=== PATIENT | male | born 1940 | race Caucasian/White ===

== ENCOUNTER 2022-11-15 09:28 | Day surgery (SDC) | payer OTHER ==
--- NOTE | 2022-11-15 08:48 | HP ---
DATE OF SURGERY: 11/15/2022 HISTORY OF PRESENT ILLNESS: The patient is an 82-year-old had colonoscopy several years ago and is now in need of follow up screening. No bloody stools. No change in bowel habits. No new abdominal pain. Family history negative for colon cancer. PAST MEDICAL HISTORY: Knee problems in the past. Hypertension. Reflux. Skin cancer. Back pain. History of some polyps. Hyperlipidemia. Neuropathy. Osteoarthritis. Sleep apnea. Carotid artery disease in the past. Rhinitis. PAST SURGICAL HISTORY: Joint replacement. Back surgery. Total left knee surgery. Skin cancer right anglican. Left thyroid surgery in the past. MEDICATIONS: Terbinafine, amlodipine, dexamethasone, liquid tears, nitroglycerin, isosorbide mononitrate, zolpidem, Desonide cream, fluticasone, multivitamins, acetaminophen, cetirizine, omeprazole, docusate sodium, aspirin, lovastatin, hydrochlorothiazide, Atenolol, lisinopril. ALLERGIES: NKDA. IV CONTRAST. FAMILY HISTORY: Negative in regards to this problem. SOCIAL HISTORY: Former smoker. No alcohol abuse. REVIEW OF SYSTEMS: Fourteen systems reviewed. No chest pain or palpitations. Other systems negative or noncontributory as above and per preadmission questionnaire. PHYSICAL EXAMINATION: Height 5' 9". BMI 28. GENERAL: No acute distress. HEENT: Sclerae nonicteric. EOMI. Oral mucous membranes moist. NECK: No JVD. CHEST: Equal excursion, nonlabored breathing. CVS: Regular rate and rhythm. ABDOMEN: Soft. No peritoneal signs. EXTREMITIES: No significant edema. NEURO: Alert, oriented, moving extremities symmetrically. RECTAL: Deferred timed to endoscopy exam. PSYCH: Appropriate mood and affect. SKIN: Dry. IMPRESSION: Need for follow up screening colonoscopy. I feel the patient is a candidate. Risks and benefits explained in detail including bleeding and infection, risk of bowel injury or perforation, risk of missed or nondiagnosis or incomplete exam possibly requiring barium enema, other studies or procedures, general risk of anesthesia or sedation, risk of bowel prep but not limited to. Consent obtained. Will proceed with follow up screening colonoscopy as an outpatient.
[2022-11-15] MEDS ORDERED: Lactated Ringers 1,000 ML IV SCH (09:30)
[2022-11-15] MEDS ORDERED: DIPRIVAN 200 MG/20 ML IV ONE (10:52)
[2022-11-15 12:25] VITALS: O2SAT 93
[2022-11-15 12:34] VITALS: BP 151/81; PULSE 56
--- NOTE | 2022-11-16 12:54 | OP ---
SURGERY DATE/TIME: 11/15/2022 1113 PREOPERATIVE DIAGNOSIS: Need for follow up screening colonoscopy. POSTOPERATIVE DIAGNOSES: 1) Small polyps. 2) Diverticulosis left colon. 3) Good prep. 4) ASA Class III. PROCEDURES: 1) Colonoscopy to cecum. 2) Hot biopsy polypectomy transverse colon polyp x1. 3) Hot biopsy polypectomy sigmoid colon polyps x2. 4) Hot biopsy polypectomy rectosigmoid colon polyp x1. SURGEON: Dr. Sebastian Silva. ANESTHESIA: MAC. ESTIMATED BLOOD LOSS: Minimal. INDICATIONS: As noted above. Risks and benefits explained in detail but not limited to and consent obtained. DESCRIPTION OF PROCEDURE AND FINDINGS: The patient is taken to the endoscopy room. MAC anesthesia induced. After official time out and no disagreement with planned procedure, digital rectal exam did not reveal any rectal masses. Video colonoscope inserted and passed up through the slightly tortuous sigmoid, descending, transverse and ascending colon. With the external pressure the scope was able to be passed around to the cecum. Appendiceal orifice and ileocecal valve well visualized and photo documented. The scope is carefully withdrawn over the next nine minutes. ASA Class was III. Prep overall was good with a little bit of liquidy stool but overall fairly good prep. He appeared to have some diverticulosis in the left colon. There was one small polyp in the transverse colon removed with hot biopsy polypectomy. A few small early polyps versus hyperplastic lesion in the sigmoid colon removed with hot biopsy polypectomy. One small early polyp versus hyperplastic lesion rectosigmoid colon removed with hot biopsy polypectomy. The scope was withdrawn. There were no signs of any large polyps, masses or obstructing lesion. I went to look for family out in the waiting area.
== END 2022-11-15 12:40 | disposition home or self-care (01) ==
LOC: SDC 09:28
PROVIDERS: ATTEND Surgery
DX: Z12.11 Encounter for screening for malignant neoplasm of colon (principal); K57.30 Diverticulosis of large intestine without perforation or abscess without bleeding; D12.7 Benign neoplasm of rectosigmoid junction; D12.5 Benign neoplasm of sigmoid colon; D12.3 Benign neoplasm of transverse colon; I10 Essential (primary) hypertension; Z85.828 Personal history of other malignant neoplasm of skin
CPT/HCPCS: 93005; 99100; J2704